=== PATIENT | female | born 1950 | race Caucasian/White ===

== ENCOUNTER 2019-08-08 09:53 | Outpatient (CLI) | payer MEDICARE, OTHER, SELFPAY ==
--- NOTE | 2019-08-08 10:01 | XR_ITS ---
WS: [id number] DEXA (DUAL ENERGY X-RAY ABSORPTIOMETRY) Bone mineral density was performed using a [employer] machine. HISTORY: POSTMENOPAUSAL COMPARISON: None available. Lumbar spine BMD (L1-L4): 0.922 g/cm2 T score: -2.1 Z score: -0.6 Total hip BMD: Left: 0.704 g/cm2. T score: -2.4 Z score: -1.0 Right: 0.726 g/cm2. T score: -2.2 Z score: -0.8 10 year probability of a major osteoporotic fracture is 23%. RIGHT convex curvature lumbar spine. XR/XR DEXA axial skeleton* [id number] IMPRESSION: OSTEOPENIA based upon the WHO classification for females.
== END 2019-08-08 09:54 | disposition home or self-care (01) ==
LOC: RADWPI 10:00
PROVIDERS: Family Provider Internal Medicine; PCP Internal Medicine; Referring Provider Internal Medicine; Visit Provider Internal Medicine
DX: Z78.0 Asymptomatic menopausal state (principal)
CPT/HCPCS: 77080

== ENCOUNTER → 2019-08-20 07:51 | Outpatient (BNVA) | payer MEDICARE, OTHER, SELFPAY | PROVIDERS: Family Provider Internal Medicine; PCP Internal Medicine; Referring Provider Internal Medicine; Visit Provider Orthopaedic Surgery Adult Reconstructive Orthopaedic Surgery | DX: G56.02 Carpal tunnel syndrome, left upper limb (principal) | CPT/HCPCS: 95908 ==

== ENCOUNTER 2020-04-02 09:30 | Emergency (ER) | payer MEDICARE, OTHER, SELFPAY ==
[2020-04-02 09:43] VITALS: BP 138/89; PULSE 72; RESP 14; TEMP 36.3; O2SAT 99; BMI 25.4
[2020-04-02 09:55] VITALS: BP 142/84; PULSE 71; RESP 16; O2SAT 98
--- NOTE | 2020-04-02 10:05 | W.ED.EXTPRO ---
HPI - Extremity Problem General: Chief complaint: Extremity Injury, Lower Stated complaint: RIGHT LEG AND LEFT HIP PAIN Time Seen by Provider: 04/02/20 09:32 Source: patient Mode of arrival: ambulatory Limitations: no limitations History of Present Illness: HPI Narrative: Patient is a 69-year-old female who presents to ED today with a complaint of left hip pain. Patient tells me several days ago she went to her PCP Dr. Mondragon for complaints of pain to her right thigh that seem to be present with certain positions. She does have a history of abnormal curvature to her spine and a lumbar compression fracture. Dr. Mondragon is currently scheduling her for an MRI. She states following that visit she began having pain in her left hip. She denies fevers, chills, body aches. No redness or heat to the joint. She has not had any injury or trauma to the hip joint. She denies numbness, tingling, loss of sensation to her lower extremity. No color or temperature changes noted. She states pain seems to be localized to the joint itself and worse with ambulation. She has no complaints of lower back pain at this time. No saddle anesthesia. Bowel and bladder habits have been normal. MD Complaint: joint pain Onset (ago): day(s) Location: left and lower extremity (hip) Radiation: none Relieving factors: immobilization Exacerbating factors: weight bearing Associated symptoms: Reports no associated symptoms; Deny fever(s) Review of Systems Const: Denies: fever(s), chills, body aches, fatigue or malaise Resp: Denies: dyspnea GI: Denies: nausea or vomiting Musc: Reports: joint pain (L hip); Denies: neck pain, back pain, joint swelling, joint redness, joint warmth, muscle cramps or muscle weakness Neuro: Denies: numbness in extremities, weakness in extremities or sensory changes PFS ED PFSH: Social History (Updated 04/02/20 @ 09:50 by Dave Castor RN) Smoking and tobacco status: never smoked Alcohol intake: never Substance/Drug Use: never Physical Exam Const: COMMON NORMALS: no acute distress, average body habitus, patient oriented x3, no limitations, healthy appearing, alert and well nourished Extremity: GENERAL: Yes normal exam except as noted LEFT LOWER EXTREMITY: Yes hip joint (see below) OTHER: pt with full ROM of hip joint; strength 5/5 noted; she has TTP over L SI and iliac crest Neuro: COMMON NORMALS: patient oriented x3, moves all extremities, no focal motor deficits, no sensory deficits noted and gait normal SENSORIUM/ORIENTATION: Yes alert Skin: NARRATIVE SKIN EXAM: normal temp/color to bilateral LE; no skin changes overlying L hip joint Course Vital Signs: Vital signs: Vital Signs Temperature 97.3 F L 04/02/20 09:43 Pulse Rate 60 04/02/20 10:59 Respiratory Rate 16 04/02/20 10:59 Blood Pressure 122/75 04/02/20 10:59 Pulse Oximetry 98 04/02/20 10:59 MDM - Extremity (Nontraumatic) MDM Narrative: Medical decision making narrative: Patient has no neurological deficits. No acute injury/trauma. There is no need for emergent imaging today. Recommend she follow up with PCP in a week or so for continued pain. Discharge Plan Discharge Patient Disposition: Home Clinical Impression: Acute pain of left hip Condition: Stable Prescriptions: New ibuprofen 800 mg tablet 800 mg PO Q8H PRN (Reason: pain) Qty: 20 RF: 0 Tylenol-Codeine #3 300-30 mg tablet 1 tab PO Q6H PRN (Reason: pain) Qty: 10 RF: 0 Medrol (Eusebio) 4 mg tablets,dose pack See Rx Instructions .ROUTE .COMPLEX Qty: 21 RF: 0 Discharge Orders: Discharge Order (Routine); Ordered 04/02/20 Ordered By: Anna Aguillon Referrals: Chad Mondragon DO [Primary Care Provider] - Patient Instructions: Acetaminophen/Codeine (By mouth) Activity Restrictions/Additional Instructions: As discussed please follow-up with your primary care provider in approximately 1 week for continued pain. Discharge Date/Time: 04/02/20 11:00 Coding Level of Care Code ED Director Of Anesthesia Services for Chg Fwd Exam Expanded Problem Focused
[2020-04-02] MEDS: dexamethasone 10 mg/mL INJ 8 MG IM (10:23)
[2020-04-02] MEDS: ketorolac 30 mg/mL INJ IM (10:24)
[2020-04-02 10:59] VITALS: BP 122/75; PULSE 60; RESP 16; O2SAT 98
--- NOTE | 2020-04-02 10:59 | PC.NURSE ---
Read and agree with assessment
== END 2020-04-02 11:00 | disposition home or self-care (01) ==
PROVIDERS: Emergency Provider Physician Assistant; PCP Internal Medicine
DX: M25.552 Pain in left hip (principal)
CPT/HCPCS: 12345; 96372; 99281; 99283; J1100; J1885

== ENCOUNTER 2020-04-15 14:23 | Outpatient (CLI) | payer MEDICARE, OTHER, SELFPAY ==
--- NOTE | 2020-04-15 14:34 | MR_ITS ---
WS: [id number] MRI LUMBAR SPINE NONCONTRAST TECHNIQUE: Sagittal T1, T2 and STIR imaging. Axial T1 and T2 imaging. CLINICAL INFORMATION: RIGHT LUMBAR RADICULOPATHY COMPARISON: None. FINDINGS: Mild lumbar curve. No acute compression. Disc bulging worse at L1-2. Small disc protrusion lower thor acic spine at T10-11 with mild central canal stenosis. L1-L2: Bilobed disc bulging with moderate to severe central canal stenosis and impingement subarticul ar recess bilaterally. Mild left greater than right foraminal narrowing. Moderate facet arthropathy. L2-L3: Mild disc bulging with impingement left subarticular recess and traversing left L3 nerve root. Left foraminal protrusion impinges the left L2 and traversing left L3 nerve roots. Mild central mckenna l stenosis. Moderate facet arthropathy. L3-L4: Mild annular bulging. Moderate facet arthropathy with ligamentum flavum hypertrophy. Moderate central canal stenosis. Impingement on the traversing L4 nerve roots bilaterally. Moderate right [place] narrowing. L4-L5: Mild annular bulging. Impingement right subarticular recess with moderate right foraminal lester rowing. Contact of the exiting right L4 nerve root. Mild left foraminal narrowing. Moderate facet art hropathy. L5-S1: Mild disc osteophytic ridging. Mild right and no significant left foraminal narrowing. Mild to moderate facet arthropathy. Visualized pelvic bony structures: Normal. Paravertebral soft tissues: Normal. MR/MR lumbar spine wo con* [id number] IMPRESSION: 1. Mild lumbar curve. No acute compression. 2. Moderate to severe central canal stenosis L1-2 due to disc bulging with fac et arthropathy ligament flavum hypertrophy. 3. Disc bulging L2-3 with impingement on the traversing left L3 and exiting le ft L2 nerve roots with mild central canal stenosis. 4. Moderate central canal stenosis L3-4 with impingement right subarticular re cess and moderate right foraminal narrowing. Contact of the exiting right L3 ne rve root. 5. Right eccentric disc bulging L4-5 contacts the exiting right L4 nerve root. Impingement traversing right L5 nerve root in the subarticular recess. 6. Mild right L5-S1 foraminal narrowing.
== END 2020-04-15 14:24 | disposition home or self-care (01) ==
LOC: RADWPI 14:31
PROVIDERS: PCP Internal Medicine; Visit Provider Internal Medicine
DX: M54.16 Radiculopathy, lumbar region (principal); M48.061 Spinal stenosis, lumbar region without neurogenic claudication; M51.26 Other intervertebral disc displacement, lumbar region
CPT/HCPCS: 72148

== ENCOUNTER 2020-05-18 10:58 | Outpatient (CLI) | payer MEDICARE, OTHER, SELFPAY ==
--- NOTE | 2020-05-18 11:23 | XR_ITS ---
WS: [id number] RIGHT HIP HISTORY: RIGHT HIP PAIN COMPARISON: None available. Upright 2 views. Right hip: No acute fracture or dislocation. Very minimal osteophytic ridging. No bone destruction. Mild narrowing and sclerosis of the RIGHT SI joint. XR/XR hip RT 2-3V wo/w pel* [id number] IMPRESSION: 1. No hip fracture. 2. Mild RIGHT hip joint osteoarthritis.
== END 2020-05-18 10:59 | disposition home or self-care (01) ==
LOC: RADWPI 11:01
PROVIDERS: PCP Internal Medicine; Visit Provider Surgery
DX: M16.11 Unilateral primary osteoarthritis, right hip (principal)
CPT/HCPCS: 73502

== ENCOUNTER 2021-04-06 08:51 | Outpatient (CLI) | payer MEDICARE, OTHER, SELFPAY ==
--- NOTE | 2021-04-06 | US_ITS ---
WS: [id number] RENAL ULTRASOUND HISTORY: LEFT FLANK PAIN COMPARISON: 03/01/2019 TECHNIQUE: 2-D and color Doppler imaging of the kidney submitted. Right kidney: 11.1 cm x 4.7 cm x 4.4 cm. Normal size kidney. Mild increased echogenicity. Exophytic cyst measuring 1.1 x 0.9 cm from the kidne y. Exact location is not determined on the labeling of the kidney. No hydronephrosis or solid mass. Left kidney: 10.7 cm x 5.8 cm x 4.9 cm. Normal echogenicity with no hydronephrosis or mass. Aorta: Mild atherosclerosis and ectasia. Urinary Bladder: Mildly distended bladder with mild diffuse wall thickening. US/US renal BI* [id number] IMPRESSION: 1. No hydronephrosis or mass. 2. 1.1 cm RIGHT renal cyst.
== END 2021-04-06 08:52 | disposition home or self-care (01) ==
LOC: RADOUTREAD 04-07 08:55
PROVIDERS: PCP Internal Medicine; Visit Provider Internal Medicine
DX: N28.1 Cyst of kidney, acquired (principal); R10.9 Unspecified abdominal pain

== ENCOUNTER 2021-10-28 09:56 | Outpatient (CLI) | payer MEDICARE, OTHER, SELFPAY ==
--- NOTE | 2021-10-28 10:11 | MM_ITS ---
WS: [id number] ADDITIONAL VIEWS LEFT MAMMOGRAM, 3-D. LEFT BREAST ULTRASOUND HISTORY: LEFT BREAST PAIN COMPARISON: 02/10/2017 LEFT MAMMOGRAM: Spot compression views and true ML. Marker is placed along the medial LEFT breast at 11:00 in the area of pain. No underlying abnormality is identified. There is a normal appearance of the soft tissues. No distortion or mass. LEFT BREAST ULTRASOUND 2-D and color Doppler imaging submitted. Ultrasound is directed along the medial LEFT breast near 11:00 in the area of pain. There is no soft tissue abnormality. No distortion. No mass. MM/[place] [id number] IMPRESSION: BI-RADS: 2-Benign FOLLOW UP: 1 Year Follow-up
== END 2021-10-28 09:57 | disposition home or self-care (01) ==
LOC: RAD 10:00
PROVIDERS: PCP Internal Medicine; Visit Provider Internal Medicine
DX: N64.4 Mastodynia (principal)
CPT/HCPCS: 76642; 77061; 77062

== ENCOUNTER → 2022-06-01 10:00 | Outpatient (BNVA) | payer MEDICARE, OTHER, SELFPAY | PROVIDERS: PCP Internal Medicine; Referring Provider Dermatology; Visit Provider Podiatrist Foot & Ankle Surgery | DX: G57.92 Unspecified mononeuropathy of left lower limb (principal); M72.2 Plantar fascial fibromatosis | CPT/HCPCS: 73630; 99204 ==

== ENCOUNTER → 2022-07-04 11:06 | Outpatient (BNVA) | payer MEDICARE, OTHER, SELFPAY | PROVIDERS: PCP Internal Medicine; Visit Provider Podiatrist Foot & Ankle Surgery | DX: M72.2 Plantar fascial fibromatosis (principal); G57.92 Unspecified mononeuropathy of left lower limb | CPT/HCPCS: 99213 ==

== ENCOUNTER 2022-07-19 09:55 | Outpatient (RCR) | payer MEDICARE, OTHER, SELFPAY | END 2022-07-30 23:59 | disposition home or self-care (01) | LOC: SPT 09:55 | PROVIDERS: PCP Internal Medicine; Visit Provider Podiatrist Foot & Ankle Surgery | DX: G58.8 Other specified mononeuropathies (principal); M72.2 Plantar fascial fibromatosis | CPT/HCPCS: 97033; 97035; 97140; 97161 ==

== ENCOUNTER 2022-07-31 06:00 | Outpatient (RCR) | payer MEDICARE, OTHER, SELFPAY | END 2022-08-13 12:27 | disposition home or self-care (01) | LOC: SPT 06:00 | PROVIDERS: PCP Internal Medicine; Visit Provider Podiatrist Foot & Ankle Surgery | DX: M72.2 Plantar fascial fibromatosis (principal); G58.8 Other specified mononeuropathies | CPT/HCPCS: 97033; 97035; 97110; 97140 ==

== ENCOUNTER → 2022-08-15 11:13 | Outpatient (BNVA) | payer MEDICARE, OTHER, SELFPAY | PROVIDERS: PCP Internal Medicine; Visit Provider Podiatrist Foot & Ankle Surgery | DX: G57.92 Unspecified mononeuropathy of left lower limb (principal); M72.2 Plantar fascial fibromatosis | CPT/HCPCS: 99213 ==

== ENCOUNTER 2023-04-19 09:42 | Outpatient (CLI) | payer MEDICARE, OTHER, SELFPAY ==
--- NOTE | 2023-04-19 09:46 | CT_ITS ---
WS: [id number] CT ABDOMEN PELVIS TECHNIQUE: Contrast-enhanced CT of the abdomen and pelvis with coronal and sagittal reformatted image s. CLINICAL INFORMATION: ABDOMINAL PAIN/HX OF DIVERTICULITIS COMPARISON: CT 2013 DLP: 444.[address] scans at [facility] use at least one of these dose optimization techniques: automated e xposure control; mA and/or kV adjustment per patient size (includes targeted exams where dose is matc hed to clinical indication); or iterative reconstruction. FINDINGS: Diffuse fatty infiltration liver. Normal portal vein and splenic vein. Normal spleen. Small esophagea l hiatal hernia. Lung bases are well aerated. Adrenal glands are normal. Normal renal parenchymal enh ancement. Small renal cysts. Celiac and SMA are patent. Mild aortic calcification. Sigmoid diverticulosis. No evidence of acute diverticulitis. Tiny fat-containing umbilical hernia. Mi ld lumbar curve. No abdominal lymphadenopathy. Thoracolumbar curve. IMPRESSION: 1. Diffuse fatty filtration of the liver. 2. Small esophageal hernia. 3. Small bilateral renal cysts. No hydronephrosis. 4. Sigmoid diverticulosis. No evidence of acute diverticulitis. 5. No other acute findings.
[2023-04-19 10:58] LABS: Blood Urea Nitrogen 13 mg/dL (8-23)
[2023-04-19] MEDS: iohexol 350 mg/mL 500 mL Btl (per mL) PO (11:04)
[2023-04-19] MEDS: iohexol 350 mg/mL 500 mL Btl (per mL) IV (11:05)
== END 2023-04-19 09:43 | disposition home or self-care (01) ==
PROVIDERS: Radiology Neuroradiology; PCP Internal Medicine; Visit Provider Surgery
DX: R10.9 Unspecified abdominal pain (principal); K76.0 Fatty (change of) liver, not elsewhere classified; K44.9 Diaphragmatic hernia without obstruction or gangrene; N28.1 Cyst of kidney, acquired; K57.30 Diverticulosis of large intestine without perforation or abscess without bleeding
CPT/HCPCS: 74177; 82565; 84520; Q9967

== ENCOUNTER 2023-08-17 09:08 | Outpatient (CLI) | payer MEDICARE, OTHER, SELFPAY ==
--- NOTE | 2023-08-17 09:17 | MM_ITS ---
WS: [id number] BILATERAL SCREENING DIGITAL TOMOSYNTHESIS MAMMOGRAM WITH CAD HISTORY: SCREENING COMPARISON: 10/28/2021 and 06/17/2021 Bilateral CC and MLO views with tomosynthesis and synthetic mammography submitted. Computer aided det ection analyzed. Breast composition: There are scattered areas of fibroglandular density. No suspicious masses, microc alcifications or architectural distortion. IMPRESSION: MM/[place] [id number] BI-RADS: 1-Negative FOLLOW UP: 1 Year Follow-up
== END 2023-08-17 09:09 | disposition home or self-care (01) ==
PROVIDERS: PCP Internal Medicine; Visit Provider Internal Medicine
DX: Z12.31 Encounter for screening mammogram for malignant neoplasm of breast (principal)
CPT/HCPCS: 77063; 77067

== ENCOUNTER 2024-09-23 08:27 | Outpatient (CLI) | payer MEDICARE, OTHER, SELFPAY ==
--- NOTE | 2024-09-23 | MM_ITS ---
WS: [id number] BILATERAL SCREENING DIGITAL TOMOSYNTHESIS MAMMOGRAM WITH CAD HISTORY: ANNUAL SCREENING COMPARISON: 08/17/2023, 10/28/2021 and 06/17/2021 Bilateral CC and MLO views with tomosynthesis and synthetic mammography submitted. Computer aided detection analyzed. Breast composition: There are scattered areas of fibroglandular density. No suspicious masses, microcalcifications or architectural distortion. MM/MM scr BI tomosynthesis [id number] IMPRESSION: BI-RADS: 2 - Benign. FOLLOW UP: 1 Year Follow-up
== END 2024-09-23 08:28 | disposition home or self-care (01) ==
LOC: RAD 08:29
PROVIDERS: PCP Internal Medicine; Visit Provider Family Medicine
DX: Z12.31 Encounter for screening mammogram for malignant neoplasm of breast (principal); R92.323 Mammographic fibroglandular density, bilateral breasts
CPT/HCPCS: 77063; 77067

== ENCOUNTER 2025-02-11 10:09 | Outpatient (CLI) | payer MEDICARE, OTHER, SELFPAY ==
--- NOTE | 2025-02-11 10:15 | MR_ITS ---
WS: [id number] MRI LEFT HIP WITHOUT CONTRAST. COMPARISON: Radiograph 04/10/2024 Multiplanar, multisequence imaging is performed without contrast. No acute fractures. No joint effusions. Minimal narrowing of the hip joints. LEFT hip: Cortical irregularity involving the superior acetabulum and the superior surface of the femoral head. There is mild diffuse loss of cartilage. Very slight osteophytic ridging of the acetabulum. No CAM deformity. Small amount of increased T2 signal at the gluteus medius insertion site to the g reater trochanter. There is a very small amount of superficial marrow edema also. Mild narrowing of the SI joints. No marrow edema. No ascites or free fluid. MR/MR hip LT wo con* [id number] IMPRESSION: 1. Mild tendinopathy insertion site of the LEFT gluteus medius at the greater trochanter. No full-thickness tear. Small amount of underlying marrow edema jennifer ng the greater trochanter. 2. 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 No fractures. 3. No joint effusion.
== END 2025-02-11 10:10 | disposition home or self-care (01) ==
LOC: RAD 10:12
PROVIDERS: PCP Family Medicine; Visit Provider Family Medicine
DX: M76.892 Other specified enthesopathies of left lower limb, excluding foot (principal); M94.252 Chondromalacia, left hip
CPT/HCPCS: 73721